=== PATIENT | male | born 1975 | race Caucasian/White ===

== ENCOUNTER 2018-06-17 07:46 | Emergency (ER) | payer OTHER ==
[~2018-06-17] VITALS: Ht 180.3 cm; Wt 104.3 kg
[2018-06-17] MEDS ORDERED: COZAAR50 MG (07:59)
[2018-06-17] MEDS ORDERED: FIORICET (08:00)
[2018-06-17] MEDS ORDERED: TUSSI PRES-B L120 M1 PO (11:10)
[2018-06-17] MEDS ORDERED: ZITHROMAX500 MG PO (11:10)
== END 2018-06-17 11:28 | disposition home or self-care (01) ==
LOC: ER 07:46
DX: J06.9 Acute upper respiratory infection, unspecified (principal)